=== PATIENT | male | born 1965 | race American Indian/Alaskan Native ===

== ENCOUNTER 2021-06-21 08:00 | Outpatient (CLI) | payer OTHER | END 2021-06-21 08:30 | disposition home or self-care (01) | LOC: PPH VACUNA 08:00 | PROVIDERS: ATTEND Emergency Medicine Pediatric Emergency Medicine | DX: Z23 Encounter for immunization (principal) ==

== ENCOUNTER 2022-01-08 10:28 | Outpatient (CLI) | payer OTHER | END 2022-01-08 10:43 | disposition home or self-care (01) | LOC: PPH VACUNA 10:28 | PROVIDERS: ATTEND Emergency Medicine Pediatric Emergency Medicine | DX: Z23 Encounter for immunization (principal) ==

== ENCOUNTER 2022-06-15 14:54 | Emergency (ER) | payer OTHER ==
[~2022-06-15] VITALS: Ht 180.3 cm; Wt 83.9 kg
[2022-06-15] MEDS ORDERED: NEXIUM5 MG (15:07)
== END 2022-06-15 18:27 | disposition home or self-care (01) ==
LOC: ER 14:54
DX: J40 Bronchitis, not specified as acute or chronic (principal); J02.9 Acute pharyngitis, unspecified; Z20.828 Contact with and (suspected) exposure to other viral communicable diseases

== ENCOUNTER → 2022-08-12 | Emergency (ER) | payer OTHER ==
[~2022-08-12] VITALS: Ht 180.3 cm; Wt 86.2 kg
[~2022-08-12] MED LIST: CIPRO500 MG PO; NEXIUM5 MG
== END | disposition home or self-care (01) ==
LOC: ER 15:34
DX: S61.111A Laceration without foreign body of right thumb with damage to nail, initial encounter (principal); X58.XXXA Exposure to other specified factors, initial encounter; Y93.89 Activity, other specified; Y92.89 Other specified places as the place of occurrence of the external cause; Y99.8 Other external cause status

== ENCOUNTER 2022-08-20 13:39 | Emergency (ER) | payer OTHER ==
[~2022-08-20] VITALS: Ht 180.3 cm; Wt 83.9 kg
[2022-08-20] MEDS ORDERED: ESOMEPRAZOLE MA20 MG (14:33)
== END 2022-08-20 20:07 | disposition home or self-care (01) ==
LOC: ER 13:39
DX: M77.8 Other enthesopathies, not elsewhere classified (principal)

== ENCOUNTER 2022-11-29 16:15 | Emergency (ER) | payer OTHER ==
[~2022-11-29] VITALS: Ht 180.3 cm; Wt 81.6 kg
[~2022-11-29 16:15] MED LIST changes: +ESOMEPRAZOLE MA20 MG
[2022-11-29] MEDS ORDERED: NEXIUM 24HR20 MG (16:36)
[2022-11-29] MEDS ORDERED: TOPROL XL25 M1 (16:36)
== END 2022-11-29 20:00 | disposition home or self-care (01) ==
LOC: ER 16:15
DX: R42 Dizziness and giddiness (principal); I10 Essential (primary) hypertension

== ENCOUNTER 2023-02-17 11:56 | Emergency (ER) | payer OTHER ==
[~2023-02-17] VITALS: Ht 180.3 cm; Wt 79.4 kg
[~2023-02-17 11:56] MED LIST changes: +NEXIUM 24HR20 MG; +TOPROL XL25 M1
== END 2023-02-17 16:58 | disposition home or self-care (01) ==
LOC: ER 11:56
DX: R53.81 Other malaise (principal); I10 Essential (primary) hypertension

== ENCOUNTER 2023-09-21 14:20 | Emergency (ER) | payer OTHER ==
[~2023-09-21] VITALS: Ht 180.3 cm; Wt 77.1 kg
[2023-09-21] MEDS ORDERED: hydrOXYzine PAMOATE 50 MG CAPSULE PO STA (17:22)
[2023-09-21] MEDS ORDERED: ENALAPRILAT DIHYDRATE 1.25 MG/ML VIAL IV STA (17:22)
== END 2023-09-21 20:31 | disposition home or self-care (01) ==
LOC: ER 14:21
DX: I10 Essential (primary) hypertension (principal); F41.8 Other specified anxiety disorders

== ENCOUNTER 2024-06-15 16:23 | Emergency (ER) | payer OTHER ==
[~2024-06-15] VITALS: Ht 180.3 cm; Wt 72.6 kg
[2024-06-15] MEDS ORDERED: CEFTRIAXONE SODIUM 500 MG VIAL IM STA (20:14)
[2024-06-15] MEDS ORDERED: TETANUS & DIPHTHERIA TOX,ADULT 0.5 ML VIAL IM STA (20:14)
[2024-06-15] MEDS ORDERED: MONODOX100 MG PO (21:00)
== END 2024-06-15 22:34 | disposition home or self-care (01) ==
LOC: ER 16:25
DX: S60.571A Other superficial bite of hand of right hand, initial encounter (principal); W54.0XXA Bitten by dog, initial encounter; Y93.89 Activity, other specified; Y92.89 Other specified places as the place of occurrence of the external cause; I10 Essential (primary) hypertension